=== PATIENT | female | born 1985 | race Hispanic/Latino ===

== ENCOUNTER 2018-02-02 22:08 | Inpatient (IN) | payer MEDICAID, OTHER ==
[~2018-02-02] VITALS: Ht 167.6 cm; Wt 122.2 kg
[2018-02-02 23:00] VITALS: BP 127/78
[2018-02-02 23:06] LABS: APPEARANCE,URINE Clear (CLEAR); BILIRUBIN,URINE Negative (NEGATIVE); COLOR,URINE Yellow (YELLOW); GLUCOSE, URINE (UA) Negative (NEGATIVE); KETONES,URINE Negative (NEGATIVE); LEUKOCYTE ESTERASE ,URINE Negative (NEGATIVE); NITRATE,URINE Negative (NEGATIVE); OCCULT BLOOD,URINE Negative (NEGATIVE); PROTEIN,URINE Negative (NEGATIVE); UROBILINOGEN,URINE 0.2 mg/dL (0.2-1.0)
[2018-02-03 00:02] LABS: HEMATOCRIT 34.1 % (36-48); MEAN CORPUSCULAR HEMOGLOBIN 27.3 pg (27.0-33.0); MEAN CORPUSCULAR HGB CONC 33.4 g/dL (32.0-36.0); MEAN CORPUSCULAR VOLUME 81.7 fL (79-99); PLATELET COUNT (AUTO) 337 K/uL (130-400); RED BLOOD CELL COUNT(AUTO) 4.17 MIL/uL (4.00-5.50); RED CELL DISTRIBUTION WIDTH 15.6 % (11.0-15.5); WHITE BLOOD COUNT (AUTO) 15.1 K/uL (4.8-10.8)
[2018-02-03] MEDS: LACTATED RINGERS 1000ML 1,000 ML IV PRN ×2 (00:24→06:45)
[2018-02-03] MEDS ORDERED: PREN1TAB89 PO (02:10)
[2018-02-03] MEDS ORDERED: LACTATED RINGERS 1000ML 1,000 ML IV ONE ×2 (02:11→11:50)
[2018-02-03] MEDS ORDERED: OXYTOCIN 10 USP UNITS/ML ONE ×2 (02:12→11:51)
[2018-02-03 02:19] LABS: AMPHET/METH SCREEN,URINE NEGATIVE (NEGATIVE); BARBITURATE SCREEN, URINE NEGATIVE (NEGATIVE); BENZODIAZEPINES SCREEN,URINE NEGATIVE (NEGATIVE); CANNABINOID SCREEN,URINE NEGATIVE (NEGATIVE); COCAINE SCREEN,URINE NEGATIVE (NEGATIVE); OPIATE SCREEN,URINE NEGATIVE (NEGATIVE); PHENCYCLIDINE SCREEN,URINE NEGATIVE (NEGATIVE)
[2018-02-03] MEDS ORDERED: OXYTOCIN 10 USP UNITS/ML 20 UNIT in LACTATED RINGERS 1000ML 1,000 ML IV SCH (03:00)
[2018-02-03] MEDS ORDERED: PROMETHAZINE HCL 25 MG/ML 1ML AMPULE IM ONE (10:39)
[2018-02-03] MEDS ORDERED: MEPERIDINE-PF 50 MG/ML SYG ONE (10:40)
[2018-02-03] MEDS ORDERED: PROMETHAZINE HCL 25 MG/ML 1ML AMPULE IM SCH (10:45)
[2018-02-03] MEDS ORDERED: MEPERIDINE-PF 50 MG/ML SYG IVP SCH (10:45)
[2018-02-03 13:38] VITALS: BP 127/79
[2018-02-03] MEDS ORDERED: WITCH HAZEL 1 PAD TP PRN (14:15)
[2018-02-03] MEDS ORDERED: DIPH,PERTUSS(ACELL),TET VAC/PF 0.5 ML VIAL IM PRN (14:15)
[2018-02-03] MEDS ORDERED: BENZOCAINE/LANOLIN/ALOE VERA 60 ML AEROSOL TP PRN (14:15)
[2018-02-03 15:15] VITALS: BP 122/65
[2018-02-03] MEDS: IBUPROFEN 600 MG TABLET PO PRN (15:22)
[2018-02-03 19:18] VITALS: BP 116/63
[2018-02-03] MEDS: DOCUSATE SODIUM 100 MG CAP PO SCH (20:57)
[2018-02-04 00:31] VITALS: BP 118/66
[2018-02-04 04:18] VITALS: BP 119/71
[2018-02-04 05:37] LABS: HEMATOCRIT 28.7 % (36-48); MEAN CORPUSCULAR HEMOGLOBIN 28.4 pg (27.0-33.0); MEAN CORPUSCULAR HGB CONC 34.4 g/dL (32.0-36.0); MEAN CORPUSCULAR VOLUME 82.7 fL (79-99); PLATELET COUNT (AUTO) 288 K/uL (130-400); RED BLOOD CELL COUNT(AUTO) 3.47 MIL/uL (4.00-5.50); RED CELL DISTRIBUTION WIDTH 15.6 % (11.0-15.5)
[2018-02-04 07:45] VITALS: BP 112/71
[2018-02-04 08:20] LABS: HEPATITIS Bs ANTIGEN SCREEN P Negative (Negative)
[2018-02-04] MEDS: DOCUSATE SODIUM 100 MG CAP PO SCH (08:46)
[2018-02-04] MEDS: IBUPROFEN 600 MG TABLET PO PRN (08:47)
[2018-02-04 12:19] VITALS: BP 126/71
== END 2018-02-04 12:25 | disposition home or self-care (01) | DRG 775 ==
LOC: LDH 22:08 → WSH 02-03 13:35
PROVIDERS: ADMIT Obstetrics & Gynecology; ATTEND Obstetrics & Gynecology
PROC: 10E0XZZ Delivery of Products of Conception, External Approach (ICD-10-PCS; principal; 2018-02-03)
PROC: 0HQ9XZZ Repair Perineum Skin, External Approach (ICD-10-PCS; 2018-02-03)
DX: O69.81X0 Labor and delivery complicated by cord around neck, without compression, not applicable or unspecified (principal); O77.0 Labor and delivery complicated by meconium in amniotic fluid; O99.03 Anemia complicating the puerperium; D64.9 Anemia, unspecified; Z3A.39 39 weeks gestation of pregnancy; O70.9 Perineal laceration during delivery, unspecified
CPT/HCPCS: 36415; 80305; 81003; 85027; 86592; 86850; 86900; 86901; 87340; A4351; J2175; J2550; J2590; J7120